=== PATIENT | female | born 1940 | race Caucasian/White ===

== ENCOUNTER 2020-06-22 16:01 | Inpatient (IN) | payer OTHER ==
[~2020-06-22] VITALS: Ht 162.6 cm; Wt 59.9 kg
[~2020-06-22 16:01] MED LIST: ASA81 MG; CATAPRES0.2 MG; HYZAAR 100-251 UDTAB; METFORMIN HCL1000 M1; NORVASC5 MG; SYNTHROID; TOPROL XL100 M1; VITAMIN B-1000 MCG/2
== END 2020-07-05 17:49 | disposition home or self-care (01) | DRG 280 ==
LOC: ER 16:01 → SURH 06-23 12:01
PROVIDERS: ADMIT Specialist; ATTEND Specialist
PROC: 8E0ZXY6 Isolation (ICD-10-PCS; principal; 2020-06-23)
PROC: 4A12X4Z Monitoring of Cardiac Electrical Activity, External Approach (ICD-10-PCS; 2020-06-23)
PROC: 3E0F7SF Introduction of Other Gas into Respiratory Tract, Via Natural or Artificial Opening (ICD-10-PCS; 2020-06-23)
DX: I13.0 Hypertensive heart and chronic kidney disease with heart failure and stage 1 through stage 4 chronic kidney disease, or unspecified chronic kidney disease (principal); I21.A1 Myocardial infarction type 2; I50.33 Acute on chronic diastolic (congestive) heart failure; N17.8 Other acute kidney failure; C56.9 Malignant neoplasm of unspecified ovary; N39.0 Urinary tract infection, site not specified; Z16.12 Extended spectrum beta lactamase (ESBL) resistance; N04.9 Nephrotic syndrome with unspecified morphologic changes; Z20.822 Contact with and (suspected) exposure to COVID-19; E11.65 Type 2 diabetes mellitus with hyperglycemia; I16.0 Hypertensive urgency; I25.10 Atherosclerotic heart disease of native coronary artery without angina pectoris; N18.9 Chronic kidney disease, unspecified; B95.2 Enterococcus as the cause of diseases classified elsewhere; Z92.21 Personal history of antineoplastic chemotherapy; R33.8 Other retention of urine; Z79.4 Long term (current) use of insulin; Z95.5 Presence of coronary angioplasty implant and graft; R00.0 Tachycardia, unspecified

== ENCOUNTER 2020-07-14 00:02 | Inpatient (IN) | payer OTHER ==
[~2020-07-14] VITALS: Ht 162.6 cm; Wt 63.5 kg
== END 2020-07-23 13:03 | disposition designated cancer center or children's hospital (05) | DRG 280 ==
LOC: ER 00:02 → ICU-2 15:19 → MEDJ 07-17 15:47
PROVIDERS: ADMIT Specialist; ATTEND Specialist
PROC: 4A033R1 Measurement of Arterial Saturation, Peripheral, Percutaneous Approach (ICD-10-PCS; principal; 2020-07-14)
PROC: 30233N1 Transfusion of Nonautologous Red Blood Cells into Peripheral Vein, Percutaneous Approach (ICD-10-PCS; 2020-07-16)
PROC: 4A12X4Z Monitoring of Cardiac Electrical Activity, External Approach (ICD-10-PCS; 2020-07-17)
PROC: B24BZZZ Ultrasonography of Heart with Aorta (ICD-10-PCS; 2020-07-22)
DX: I21.4 Non-ST elevation (NSTEMI) myocardial infarction (principal); I50.23 Acute on chronic systolic (congestive) heart failure; I13.0 Hypertensive heart and chronic kidney disease with heart failure and stage 1 through stage 4 chronic kidney disease, or unspecified chronic kidney disease; J98.11 Atelectasis; N39.0 Urinary tract infection, site not specified; N17.8 Other acute kidney failure; C56.1 Malignant neoplasm of right ovary; I16.9 Hypertensive crisis, unspecified; N18.9 Chronic kidney disease, unspecified; E03.8 Other specified hypothyroidism; Z20.822 Contact with and (suspected) exposure to COVID-19; Z79.4 Long term (current) use of insulin; B96.29 Other Escherichia coli [E. coli] as the cause of diseases classified elsewhere; D63.1 Anemia in chronic kidney disease

== ENCOUNTER 2022-12-08 13:24 | Inpatient (IN) | payer OTHER ==
[~2022-12-08] VITALS: Ht 160 cm; Wt 45.4 kg
[2022-12-08] MEDS ORDERED: JANUVIA25 MG PO (14:05)
[2022-12-11] MEDS ORDERED: ZEJULA100 MG (16:12)
[2022-12-11] MEDS ORDERED: ALLOPURINOL100 MG (16:12)
[2022-12-11] MEDS ORDERED: PRAVASTATIN SOD80 MG (16:12)
[2022-12-11] MEDS ORDERED: CANDESARTAN-HC1 EAC1 (16:12)
[2022-12-11] MEDS ORDERED: TOUJEO SOL300 UNIT/1 (16:12)
[2022-12-11] MEDS ORDERED: LEVO-T25 MCG (16:13)
== END 2022-12-12 17:43 | disposition home or self-care (01) | DRG 644 ==
LOC: ER 13:24 → MEDJ 12-09 11:05 → SEC-K 12-09 11:05 → MEDJ 12-09 11:51
PROVIDERS: ADMIT Specialist; ATTEND Specialist
PROC: B24BZZZ Ultrasonography of Heart with Aorta (ICD-10-PCS; principal; 2022-12-10)
PROC: 4A12X4Z Monitoring of Cardiac Electrical Activity, External Approach (ICD-10-PCS; 2022-12-10)
DX: E16.0 Drug-induced hypoglycemia without coma (principal); C56.1 Malignant neoplasm of right ovary; I12.0 Hypertensive chronic kidney disease with stage 5 chronic kidney disease or end stage renal disease; N17.9 Acute kidney failure, unspecified; N18.5 Chronic kidney disease, stage 5; I24.9 Acute ischemic heart disease, unspecified; C77.3 Secondary and unspecified malignant neoplasm of axilla and upper limb lymph nodes; T38.3X5A Adverse effect of insulin and oral hypoglycemic [antidiabetic] drugs, initial encounter; R55 Syncope and collapse; S09.90XA Unspecified injury of head, initial encounter; S79.912A Unspecified injury of left hip, initial encounter; E03.9 Hypothyroidism, unspecified; Z79.4 Long term (current) use of insulin; I25.10 Atherosclerotic heart disease of native coronary artery without angina pectoris; W19.XXXA Unspecified fall, initial encounter; Y93.9 Activity, unspecified; Y92.9 Unspecified place or not applicable; E11.22 Type 2 diabetes mellitus with diabetic chronic kidney disease; D63.1 Anemia in chronic kidney disease

== ENCOUNTER 2023-01-14 22:43 | Inpatient (IN) | payer OTHER ==
[~2023-01-14] VITALS: Ht 165.1 cm; Wt 68.0 kg
[~2023-01-14 22:43] MED LIST changes: +ALLOPURINOL100 MG; +CANDESARTAN-HC1 EAC1; +JANUVIA25 MG PO; +LEVO-T25 MCG; +PRAVASTATIN SOD80 MG; +TOUJEO SOL300 UNIT/1; +ZEJULA100 MG
[2023-01-16] MEDS ORDERED: GABAPENTIN100 M2 (13:22)
[2023-01-16] MEDS ORDERED: FUROSEMIDE20 MG (13:22)
[2023-01-16] MEDS ORDERED: PHOSLO667 M1 (13:22)
[2023-01-16] MEDS ORDERED: LETROZOLE2.5 MG (13:22)
== END 2023-01-27 16:23 | disposition home or self-care (01) | DRG 280 ==
LOC: ER 22:43 → ICU-2 01-15 13:40 → ICU 01-15 13:40 → SURH 01-21 15:47
PROVIDERS: Radiology Vascular & Interventional Radiology; ADMIT Specialist; ATTEND Specialist
PROC: 5A1D70Z Performance of Urinary Filtration, Intermittent, Less than 6 Hours Per Day (ICD-10-PCS; 2023-01-16)
PROC: 5A1D70Z Performance of Urinary Filtration, Intermittent, Less than 6 Hours Per Day (ICD-10-PCS; 2023-01-19)
PROC: B514YZA Fluoroscopy of Left Jugular Veins using Other Contrast, Guidance (ICD-10-PCS; 2023-01-20)
PROC: B544ZZA Ultrasonography of Left Jugular Veins, Guidance (ICD-10-PCS; 2023-01-20)
PROC: 05HN33Z Insertion of Infusion Device into Left Internal Jugular Vein, Percutaneous Approach (ICD-10-PCS; principal; 2023-01-20 21:45)
PROC: 4A12X4Z Monitoring of Cardiac Electrical Activity, External Approach (ICD-10-PCS; 2023-01-22)
PROC: 5A1D70Z Performance of Urinary Filtration, Intermittent, Less than 6 Hours Per Day (ICD-10-PCS; 2023-01-22)
DX: I13.2 Hypertensive heart and chronic kidney disease with heart failure and with stage 5 chronic kidney disease, or end stage renal disease (principal); I50.33 Acute on chronic diastolic (congestive) heart failure; I21.A1 Myocardial infarction type 2; N18.6 End stage renal disease; N17.9 Acute kidney failure, unspecified; C56.1 Malignant neoplasm of right ovary; C77.3 Secondary and unspecified malignant neoplasm of axilla and upper limb lymph nodes; E11.22 Type 2 diabetes mellitus with diabetic chronic kidney disease; Z79.4 Long term (current) use of insulin; E11.65 Type 2 diabetes mellitus with hyperglycemia; E03.9 Hypothyroidism, unspecified; I25.10 Atherosclerotic heart disease of native coronary artery without angina pectoris; Z99.2 Dependence on renal dialysis; D63.1 Anemia in chronic kidney disease; Z20.822 Contact with and (suspected) exposure to COVID-19

== ENCOUNTER 2023-07-03 10:04 | Outpatient (CLI) | payer OTHER ==
[~2023-07-03 10:04] MED LIST changes: +FUROSEMIDE20 MG; +GABAPENTIN100 M2; +LETROZOLE2.5 MG; +PHOSLO667 M1
== END 2023-07-03 10:13 | disposition home or self-care (01) ==
LOC: RX STUDY 10:04
PROVIDERS: ATTEND Internal Medicine Hematology & Oncology
DX: C56.1 Malignant neoplasm of right ovary (principal); C77.3 Secondary and unspecified malignant neoplasm of axilla and upper limb lymph nodes; C20 Malignant neoplasm of rectum; D63.1 Anemia in chronic kidney disease; D63.0 Anemia in neoplastic disease; D51.1 Vitamin B12 deficiency anemia due to selective vitamin B12 malabsorption with proteinuria; R97.0 Elevated carcinoembryonic antigen [CEA]; E08.65 Diabetes mellitus due to underlying condition with hyperglycemia; I10 Essential (primary) hypertension; E03.8 Other specified hypothyroidism; E78.5 Hyperlipidemia, unspecified; R97.8 Other abnormal tumor markers; R97.1 Elevated cancer antigen 125 [CA 125]

== ENCOUNTER 2024-02-09 09:51 | Outpatient (CLI) | payer OTHER | END 2024-02-09 09:53 | disposition home or self-care (01) | LOC: NUCLEAR 09:51 | PROVIDERS: ATTEND Specialist | DX: I82.A12 Acute embolism and thrombosis of left axillary vein (principal) ==

== ENCOUNTER 2024-03-16 12:55 | Inpatient (IN) | payer OTHER ==
[~2024-03-16] VITALS: Ht 152.4 cm; Wt 51.3 kg
--- NOTE | 2024-03-16 13:13 | NUR ---
SE RECIBE PTE FEMENINA DE 84 ANOS AAOX3 QUIEN AL MOMENTO REFEIRE DOLOR DE ELKIN Y SOB. PTE AL MOMENTO SE OBSERBA CON BUEN PATRON RESPIRATORIO Y SPO2 A 96% PTE SE LE REALIZA EKG Y SE MUESTRA A INFANUMER. PTE AAOX3 AL MOMENTO DE TRIAGE
--- NOTE | 2024-03-16 14:46 | NUR ---
PTE EVALUADO POR DR COOLEY QUIEN [place] TX MED A PTE SE EDUCA A PTE SOBRE EL MISMO Y PTE REIERE ENTENDER. SE LLEVA ACBO ORDENES BAJO MEDIDAS ACEPTICAS. PTE PEND A RESULTADOS DE LASB Y REALIZACION DE ABG.
[2024-03-16 15:02] LABS: HEMATOCRIT 32.5 % (36.0-45.00); HEMOGLOBIN 10.8 g/dL (12.0-15.00); MEAN CELL VOLUME 97.8 fL (80.00-100.00); MEAN CORPUSCULAR HEMOGLOBIN 32.7 pg (27.00-32.0); MEAN CORPUSCULAR HGB CONC 33.4 g/dl (32.0-36.0); PLATELET COUNT 150 K/uL (150-450); RED BLOOD COUNT 3.32 M/uL (4.00-6.00)
[2024-03-16] MEDS ORDERED: NITROGLYCERIN IN 5 % DEXTROSE 50 MG/250 ML BOTTLE IV STA (15:19)
[2024-03-16 15:30] LABS: ALBUMIN 2.9 gm/dL (3.4-5.0); ALKALINE PHOSPHATASE 130 U/L (50-136); ALT/SGPT 18 U/L (12-78); ANION GAP 11 (10.0-20.0); AST/SGOT 25 U/L (15-37); BILIRUBIN TOTAL 0.44 mg/dL (0.3-1.2); BILIRUBIN,CONJUGATED < 0.10 mg/dL (0.0-0.2); BILIRUBIN,UNCONJUGATED 0.34 mg/dL (0.0-0.6); BLOOD UREA NITROGEN 35 mg/dL (7-18); BUN CREA RATIO 10 (7.0-25.0); CALCIUM 9.4 mg/dL (8.5-10.1); CARBON DIOXIDE 28 mEq/L (21-32); CHLORIDE 103 mmol/L (98-107); CREATININE SERUM 3.67 mg/dL (0.55-1.02); GFR 11.84; GLUCOSE FASTING 177 mg/dL (65-100); OSMOLALITY SERUM 288 MOSM/KG (275-295); POTASSIUM 3.91 mEq/L (3.5-5.1); SODIUM 138 mmol/L (136-145)
[2024-03-16 15:53] LABS: URINE APPEARANCE Clear; URINE BILIRRUBIN Negative (NEGATIVE); URINE BLOOD Negative; URINE COLOR Yellow; URINE KETONE Negative (NEGATIVE); URINE LEUKOCYTE Negative; URINE NITRATE Negative; URINE PROTEIN >=1000 (NEGATIVE); URINE UROBILINOGEN 0.2 E.U./dl
[2024-03-16 15:55] LABS: URINE BACTERIA 118.3 uL (0.0-1933); URINE EPITHELIAL CELLS 6.7 uL (0.0-38.8); URINE RBC 22.4 uL (0.0-20.8); URINE WBC 76.8 uL (0.0-23.2)
[2024-03-16 15:57] LABS: URINE CAST 0.76 uL (0.0-1.40); URINE GLUCOSE 100 MG/DL (NEGATIVE)
[2024-03-16] MEDS ORDERED: FUROsemide 20 MG/2 ML VIAL IV STA (16:05)
--- NOTE | 2024-03-16 16:40 | NUR ---
SE RECIBE A PACIENTE ALERTA Y ORIENTADA X3 Y SE UBICA EN CAMA #3 DE AREA DE ICU-2. PACIENTE CANALIZADA EN BRAZO DERECHO X2 #20 PATENTE DWIGHT DE EDEMA Y ERITMA BAJANDO TRIDIL @ 3ML/HR. SE REALIZA INSERCION DE FITCH CATETER UTILIZANDO MEDIDAS ASEPTICAS Y ESTERILES. SE BRIGITTE MUESTRAS DE LABORATORIO Y SE ENVIAN A LABORATORIO.
[2024-03-16 16:47] LABS: ABG PH 7.465 (7.35-7.45); ABG pCO2 33.9 mmHg (35-45); BASE EXCESS 0.8 mmol/l; BICARBONATE 23.9 mmol/l (23-25); SaO2 87.4 %; Tco2 24.9 mmol/l
[2024-03-16] MEDS ORDERED: SODIUM CHLORIDE 0.45 % 1,000 ML IV SCH (17:15)
[2024-03-16] MEDS ORDERED: METOPROLOL SUCCINATE 25 MG TAB.SR.24H PO SCH (17:22)
[2024-03-16] MEDS ORDERED: ALLOPURINOL 100 MG TABLET PO SCH (17:22)
[2024-03-16] MEDS ORDERED: CEFTRIAXONE SODIUM 1,000 MG VIAL IV SCH (17:30)
[2024-03-16] MEDS ORDERED: DEXTROSE 50 % IN WATER 0.5 G/ML DISP.SYRIN IV PRN (17:30)
[2024-03-16] MEDS ORDERED: INSULIN LISPRO 1,000 UNIT/10 ML UNITS SUBCUTANEO PRN (17:30)
[2024-03-16] MEDS ORDERED: NITROGLYCERIN IN 5 % DEXTROSE 50 MG/250 ML KIT IV SCH (17:30)
[2024-03-16] MEDS ORDERED: CEFTRIAXONE SODIUM 1,000 MG VIAL IV STA (17:30)
[2024-03-16] MEDS ORDERED: ASPIRIN 81 MG TABLET.EC PO NR (17:34)
[2024-03-16] MEDS ORDERED: LEVALBUTEROL HCL 1.25 MG/3 ML SOLUTION IH SCH (18:00)
[2024-03-16] MEDS ORDERED: NITROGLYCERIN IN 5 % DEXTROSE 250 ML IV SCH (18:00)
[2024-03-16 18:42] LABS: ABG PO2 49.7 mmHg (80-100); allen test SATISFACTORY; o2 32 %; puncture site RADIAL RIGHT
[2024-03-16 19:08] VITALS: BP 155/76; O2SAT 100
[2024-03-16 19:28] VITALS: BP 126/74
[2024-03-16 20:10] VITALS: BP 116/79; O2SAT 100
[2024-03-16 21:00] VITALS: BP 121/78; O2SAT 100
[2024-03-16] MEDS ORDERED: FAMOtidine 20 MG TABLET PO SCH (21:00)
[2024-03-16 22:00] VITALS: BP 124/81; O2SAT 100
[2024-03-16 23:04] VITALS: BP 124/81; O2SAT 100
[2024-03-17] VITALS (22 sets, daily range): BP systolic 91–152; BP diastolic 75–95; O2SAT 92–100
[2024-03-17 06:16] LABS: HEMATOCRIT 31.5 % (36.0-45.00); HEMOGLOBIN 10.6 g/dL (12.0-15.00); MEAN CELL VOLUME 96.6 fL (80.00-100.00); MEAN CORPUSCULAR HEMOGLOBIN 32.5 pg (27.00-32.0); MEAN CORPUSCULAR HGB CONC 33.7 g/dl (32.0-36.0); PLATELET COUNT 142 K/uL (150-450); RED BLOOD COUNT 3.26 M/uL (4.00-6.00); RED CELL DISTRIBUTION WIDTH 15.8 % (11.5-14.5)
[2024-03-17 06:33] LABS: URINE BACTERIA 17.6 uL (0.0-1933); URINE RBC 72.9 uL (0.0-20.8); URINE WBC 6.3 uL (0.0-23.2)
[2024-03-17 06:42] LABS: PH,URINE 7.5 (5.0-8.0); URINE APPEARANCE Clear; URINE BILIRRUBIN Negative (NEGATIVE); URINE BLOOD Trace; URINE COLOR Yellow; URINE KETONE Trace (NEGATIVE); URINE LEUKOCYTE Negative; URINE NITRATE Negative; URINE PROTEIN >=1000 (NEGATIVE); URINE UROBILINOGEN 0.2 E.U./dl
[2024-03-17 07:03] LABS: URINE GLUCOSE 250 MG/DL (NEGATIVE)
[2024-03-17 07:04] LABS: ALBUMIN 2.7 gm/dL (3.4-5.0); BILIRUBIN TOTAL 0.36 mg/dL (0.3-1.2); CALCIUM 8.6 mg/dL (8.5-10.1); CHOL HDL RATIO 2.4 (0-5.0); CREATININE SERUM 3.69 mg/dL (0.55-1.02); GFR 11.76; GLOBULINA 3.4 G/DL (2.4-3.5); PHOSPHOROUS 3.7 mg/dL (2.5-4.9); POTASSIUM 3.85 mEq/L (3.5-5.1); T4 FREE 1.36 NG/ML (0.76-1.46); TOTAL PROTEIN 6.1 gm/dL (6.4-8.2)
[2024-03-17 07:22] LABS: INR 1.13; PROTHROMBIN TIME 12.2 SECONDS (9.0-11.5)
[2024-03-17 07:47] LABS: ERYTHROCYTE SEDIMENTATION RATE 80 mm/hr
[2024-03-17] MEDS ORDERED: FUROsemide 20 MG/2 ML VIAL IV SCH ×2 (09:00)
[2024-03-17] MEDS ORDERED: ASPIRIN 81 MG TABLET.EC PO SCH (09:00)
[2024-03-17] MEDS ORDERED: ALLOPURINOL 100 MG TABLET PO SCH (09:00)
[2024-03-17] MEDS ORDERED: FOLIC ACID 1 MG TABLET PO SCH (09:00)
[2024-03-17] MEDS ORDERED: SIMVASTATIN 20 MG TABLET PO SCH (09:00)
[2024-03-17] MEDS ORDERED: ENOXAPARIN SODIUM 60 MG/0.6 ML SYRINGE SUBCUTANEO STA (11:03)
[2024-03-17 11:05] LABS: ABG PH 7.442 (7.35-7.45); ABG PO2 84.2 mmHg (80-100); ABG pCO2 36.2 mmHg (35-45); BASE EXCESS 0.4 mmol/l; SaO2 95.6 %
[2024-03-17 11:06] LABS: BICARBONATE 24.1 mmol/l (23-25); Tco2 25.2 mmol/l; allen test SATISFACTORY; o2 28 %; puncture site RADIAL RIGHT
[2024-03-17] MEDS ORDERED: MEROPENEM 500 MG/VIAL VIAL IV SCH (12:00)
[2024-03-17] MEDS ORDERED: DIPHENHYDRAMINE HCL 50 MG/ML VIAL 1ML IV STA (13:17)
[2024-03-17] MEDS ORDERED: METHYLPREDNISOLONE SOD SUCC 40 MG VIAL IV STA (13:17)
[2024-03-17] MEDS ORDERED: VANCOMYCIN HCL 1,000 MG VIAL IV NR (13:23)
[2024-03-17] MEDS ORDERED: ONDANSETRON HCL 4 MG in 0.9 % SODIUM CHLORIDE 50 ML IV PRN (15:15)
[2024-03-17] MEDS ORDERED: VANCOMYCIN HCL 500 MG VIAL IV SCH (21:00)
[2024-03-18] VITALS (14 sets, daily range): BP systolic 104–153; BP diastolic 75–90; O2SAT 95–100
[2024-03-18 07:16] LABS: HEMATOCRIT 31.1 % (36.0-45.00); HEMOGLOBIN 10.4 g/dL (12.0-15.00); MEAN CELL VOLUME 96.1 fL (80.00-100.00); MEAN CORPUSCULAR HEMOGLOBIN 32.2 pg (27.00-32.0); MEAN CORPUSCULAR HGB CONC 33.5 g/dl (32.0-36.0); PLATELET COUNT 202 K/uL (150-450); RED BLOOD COUNT 3.24 M/uL (4.00-6.00); RED CELL DISTRIBUTION WIDTH 15.6 % (11.5-14.5)
[2024-03-18 07:45] LABS: ALBUMIN 2.7 gm/dL (3.4-5.0); BILIRUBIN TOTAL 0.42 mg/dL (0.3-1.2); CALCIUM 9.1 mg/dL (8.5-10.1); CREATININE SERUM 2.83 mg/dL (0.55-1.02); GFR 15.98; GLOBULINA 3.8 G/DL (2.4-3.5); MAGNESIUM 2.4 mg/dL (1.8-2.4); POTASSIUM 4.22 mEq/L (3.5-5.1); TOTAL PROTEIN 6.5 gm/dL (6.4-8.2)
[2024-03-18 08:46] LABS: MYCOPLASMA PNEUMONIAE IGM NON REACTIVE (NO REACTIVE)
[2024-03-18] MEDS ORDERED: ENOXAPARIN SODIUM 60 MG/0.6 ML SYRINGE SUBCUTANEO SCH (09:00)
[2024-03-18] MEDS ORDERED: CEFTRIAXONE SODIUM 2,000 MG VIAL IV SCH (09:00)
[2024-03-18] MEDS ORDERED: CEFTRIAXONE SODIUM 1,000 MG VIAL IV SCH (09:00)
[2024-03-18] MEDS ORDERED: IBUprofen 400 MG TABLET PO NR (10:09)
[2024-03-18] MEDS ORDERED: CLOPIDOGREL BISULFATE 75 MG TABLET PO NR (12:06)
[2024-03-18] MEDS ORDERED: PANTOPRAZOLE SODIUM 40 MG/VIAL VIAL IV STA (13:58)
[2024-03-18 15:59] LABS: AMYLASE 61 U/L (25-115); LIPASE 23 U/L (13-75)
[2024-03-18] MEDS ORDERED: PANTOPRAZOLE SODIUM 80 MG in 0.9 % SODIUM CHLORIDE 100 ML IV SCH (17:15)
[2024-03-18] MEDS ORDERED: MORPHINE SULFATE 2 MG/ML CARTRIDGE IV PRN (17:15)
[2024-03-19] VITALS (7 sets, daily range): BP systolic 115–133; BP diastolic 73–96; O2SAT 96–99
[2024-03-19] MEDS ORDERED: DIPHENHYDRAMINE HCL 50 MG in 0.9 % SODIUM CHLORIDE 50 ML IV NR (08:00)
[2024-03-19] MEDS ORDERED: METHYLPREDNISOLONE SOD SUCC 40 MG VIAL IV NR (08:00)
[2024-03-19] MEDS ORDERED: CLOPIDOGREL BISULFATE 75 MG TABLET PO SCH (09:00)
[2024-03-19] MEDS ORDERED: PANTOPRAZOLE SODIUM 40 MG/VIAL VIAL IV SCH (09:00)
[2024-03-19] MEDS ORDERED: DIATRIZOATE MEGLUMINE, SODIUM 30 ML BOTTLE PO NR (09:15)
[2024-03-19] MEDS ORDERED: PROMETHAZINE HCL 25 MG/ML AMPUL IV STA (15:29)
[2024-03-19] MEDS ORDERED: NITROGLYCERIN IN 5 % DEXTROSE 250 ML IV SCH (16:00)
[2024-03-19] MEDS ORDERED: NITROGLYCERIN 0.4 MG TAB.SUBL SL STA (16:01)
[2024-03-19] MEDS ORDERED: METOPROLOL TARTRATE 25 MG TABLET PO SCH (17:03)
[2024-03-19] MEDS ORDERED: NOREPINEPHRINE BITARTRATE 8 MG in DEXTROSE 5 % IN WATER 250 ML IV SCH (20:30)
[2024-03-20] VITALS (21 sets, daily range): BP systolic 97–137; BP diastolic 56–97; O2SAT 90–100
[2024-03-20] MEDS ORDERED: PROMETHAZINE HCL 25 MG/ML AMPUL IV PRN ×2 (09:45→10:30)
[2024-03-21] VITALS (20 sets, daily range): BP systolic 76–119; BP diastolic 56–96; O2SAT 81–100
[2024-03-21 07:07] LABS: HEMATOCRIT 23.9 % (36.0-45.00); MEAN CELL VOLUME 96.2 fL (80.00-100.00); MEAN CORPUSCULAR HGB CONC 34.3 g/dl (32.0-36.0); PLATELET COUNT 200 K/uL (150-450); RED BLOOD COUNT 2.48 M/uL (4.00-6.00)
[2024-03-21 07:10] LABS: HEMOGLOBIN 8.2 g/dL (12.0-15.00)
[2024-03-21 07:19] LABS: ALBUMIN 2.5 gm/dL (3.4-5.0); BILIRUBIN TOTAL 0.58 mg/dL (0.3-1.2); CALCIUM 8.2 mg/dL (8.5-10.1); CREATININE SERUM 3.76 mg/dL (0.55-1.02); GFR 11.51; GLOBULINA 2.8 G/DL (2.4-3.5); POTASSIUM 4.24 mEq/L (3.5-5.1); TOTAL PROTEIN 5.3 gm/dL (6.4-8.2)
[2024-03-21] MEDS ORDERED: MEROPENEM 500 MG/VIAL VIAL IV SCH (17:00)
[2024-03-22 01:28] LABS: HEMATOCRIT 34.2 % (36.0-45.00); HEMOGLOBIN 11.4 g/dL (12.0-15.00); MEAN CELL VOLUME 94.3 fL (80.00-100.00); MEAN CORPUSCULAR HEMOGLOBIN 31.4 pg (27.00-32.0); MEAN CORPUSCULAR HGB CONC 33.3 g/dl (32.0-36.0); PLATELET COUNT 155 K/uL (150-450); RED BLOOD COUNT 3.62 M/uL (4.00-6.00)
[2024-03-22 04:00] VITALS: BP 94/83; O2SAT 99
[2024-03-22 07:27] VITALS: BP 102/62; O2SAT 100
[2024-03-22] MEDS ORDERED: EPOETIN ALFA-EPBX 10,000 UNIT/ML VIAL (Retacrit) SUBCUTANEO SCH (09:00)
[2024-03-22 12:00] VITALS: BP 98/55; O2SAT 100
[2024-03-22 12:41] LABS: ABG PO2 107.6 mmHg (80-100); BASE EXCESS -11.4 mmol/l; BICARBONATE 10.4 mmol/l (23-25); SaO2 97.9 %; Tco2 109 mmol/l
[2024-03-22 12:42] LABS: allen test SATISFACTORY; o2 70 %; puncture site RADIAL RIGHT
[2024-03-22 14:17] LABS: ABG pCO2 17.2 mmHg (35-45)
[2024-03-22] MEDS ORDERED: PANTOPRAZOLE SODIUM 80 MG in 0.9 % SODIUM CHLORIDE 100 ML IV SCH (14:45)
[2024-03-22 17:32] VITALS: BP 110/55; O2SAT 100
[2024-03-22 20:00] VITALS: BP 119/58; O2SAT 100
[2024-03-22 23:50] VITALS: BP 125/57; O2SAT 100
[2024-03-23] VITALS: BP 126/61; O2SAT 99
[2024-03-23 00:06] VITALS: BP 130/49; O2SAT 100
[2024-03-23 04:00] VITALS: BP 126/56; O2SAT 100
[2024-03-23 07:01] LABS: HEMOGLOBIN 10.8 g/dL (12.0-15.00); MEAN CORPUSCULAR HEMOGLOBIN 31.6 pg (27.00-32.0); MEAN CORPUSCULAR HGB CONC 33.6 g/dl (32.0-36.0); PLATELET COUNT 150 K/uL (150-450); RED BLOOD COUNT 3.41 M/uL (4.00-6.00); RED CELL DISTRIBUTION WIDTH 17.9 % (11.5-14.5)
[2024-03-23 07:20] LABS: ALBUMIN 2.3 gm/dL (3.4-5.0); BILIRUBIN TOTAL 0.77 mg/dL (0.3-1.2); CALCIUM 8.6 mg/dL (8.5-10.1); POTASSIUM 4.08 mEq/L (3.5-5.1); TOTAL PROTEIN 5.3 gm/dL (6.4-8.2)
[2024-03-23 07:29] VITALS: BP 130/60; O2SAT 100
[2024-03-23 07:29] LABS: GFR 10.27
[2024-03-23 07:30] LABS: C-REACTIVE PROTEIN 32.4 MG/DL (0.00-0.29)
[2024-03-23 07:31] LABS: CREATININE SERUM 4.15 mg/dL (0.55-1.02)
[2024-03-23 10:02] LABS: ABG PH 7.346 (7.35-7.45); ABG PO2 119.3 mmHg (80-100); ABG pCO2 21.3 mmHg (35-45); BASE EXCESS -11.8 mmol/l; SaO2 98.2 %
[2024-03-23 10:03] LABS: BICARBONATE 11.4 mmol/l (23-25); allen test SATISFACTORY; o2 40 %; puncture site RADIAL RIGHT
[2024-03-23 12:00] VITALS: BP 119/64; O2SAT 100
[2024-03-23 12:54] LABS: ABG PH 7.312 (7.35-7.45); ABG pCO2 24.1 mmHg (35-45); BASE EXCESS -12.2 mmol/l; BICARBONATE 11.9 mmol/l (23-25); SaO2 84.1 %; Tco2 12.6 mmol/l
[2024-03-23 12:57] LABS: ABG PO2 55.8 mmHg (80-100); o2 50 %
[2024-03-23 12:58] LABS: allen test SATISFACTORY; puncture site RADIAL LEFT
[2024-03-23 15:30] VITALS: BP 131/56; O2SAT 97
[2024-03-23] MEDS ORDERED: NOREPINEPHRINE BITARTRATE 8 MG in DEXTROSE 5 % IN WATER 250 ML IV SCH (16:45)
[2024-03-23] MEDS ORDERED: DOPamine HCL IN DEXTROSE 5 % 250 ML IV SCH (16:45)
[2024-03-23] MEDS ORDERED: VANCOMYCIN HCL 500 MG VIAL IV SCH (21:00)
== END 2024-03-23 17:10 | disposition expired ==
LOC: ER 12:55 → ICU 17:31 → ICU-2 17:31 → ICU 20:08
PROVIDERS: General Practice; Internal Medicine; Internal Medicine Infectious Disease; ADMIT Specialist; ATTEND Specialist
PROC: 4A12X4Z Monitoring of Cardiac Electrical Activity, External Approach (ICD-10-PCS; principal; 2024-03-16)
PROC: 3E0F7GC Introduction of Other Therapeutic Substance into Respiratory Tract, Via Natural or Artificial Opening (ICD-10-PCS; 2024-03-16)
PROC: B246ZZZ Ultrasonography of Right and Left Heart (ICD-10-PCS; 2024-03-17)
PROC: 06HY33Z Insertion of Infusion Device into Lower Vein, Percutaneous Approach (ICD-10-PCS; 2024-03-17)
PROC: 5A1D70Z Performance of Urinary Filtration, Intermittent, Less than 6 Hours Per Day (ICD-10-PCS; 2024-03-17)
PROC: BW40ZZZ Ultrasonography of Abdomen (ICD-10-PCS; 2024-03-18)
PROC: BW21YZZ Computerized Tomography (CT Scan) of Abdomen and Pelvis using Other Contrast (ICD-10-PCS; 2024-03-19)
PROC: BB24YZZ Computerized Tomography (CT Scan) of Bilateral Lungs using Other Contrast (ICD-10-PCS; 2024-03-19)
PROC: 5A1D70Z Performance of Urinary Filtration, Intermittent, Less than 6 Hours Per Day (ICD-10-PCS; 2024-03-19)
PROC: 5A0945A Assistance with Respiratory Ventilation, 24-96 Consecutive Hours, High Flow/Velocity Cannula (ICD-10-PCS; 2024-03-20)
PROC: 30233N1 Transfusion of Nonautologous Red Blood Cells into Peripheral Vein, Percutaneous Approach (ICD-10-PCS; 2024-03-21)
PROC: 5A1D70Z Performance of Urinary Filtration, Intermittent, Less than 6 Hours Per Day (ICD-10-PCS; 2024-03-21)
PROC: 5A1D70Z Performance of Urinary Filtration, Intermittent, Less than 6 Hours Per Day (ICD-10-PCS; 2024-03-23)
DX: I21.19 ST elevation (STEMI) myocardial infarction involving other coronary artery of inferior wall (principal); I50.31 Acute diastolic (congestive) heart failure; N18.6 End stage renal disease; R65.21 Severe sepsis with septic shock; J96.01 Acute respiratory failure with hypoxia; J69.0 Pneumonitis due to inhalation of food and vomit; C18.9 Malignant neoplasm of colon, unspecified; C56.1 Malignant neoplasm of right ovary; C79.89 Secondary malignant neoplasm of other specified sites; C77.9 Secondary and unspecified malignant neoplasm of lymph node, unspecified; N04.9 Nephrotic syndrome with unspecified morphologic changes; J91.8 Pleural effusion in other conditions classified elsewhere; Z68.1 Body mass index [BMI] 19.9 or less, adult; I13.2 Hypertensive heart and chronic kidney disease with heart failure and with stage 5 chronic kidney disease, or end stage renal disease; R78.81 Bacteremia; I44.30 Unspecified atrioventricular block; I95.9 Hypotension, unspecified; I24.9 Acute ischemic heart disease, unspecified; D63.0 Anemia in neoplastic disease; D63.1 Anemia in chronic kidney disease; E78.5 Hyperlipidemia, unspecified; Z66 Do not resuscitate; Z99.2 Dependence on renal dialysis